=== PATIENT | female | born 1975 | race African-American/Black ===

== ENCOUNTER 2024-07-05 14:39 | Emergency (ER) | payer MEDICAID ==
[~2024-07-05] VITALS: Ht 172.7 cm; Wt 81.0 kg
[~2024-07-05 14:39] MED LIST: METFORMIN; PRENATAL
[2024-07-05 14:44] VITALS: O2SAT 98
[2024-07-05] MEDS ORDERED: SODIUM CHLORIDE 0.9% 1,000 ML IV ONE ×2 (15:00→15:15)
[2024-07-05 16:25] LABS: BASOPHILS % 0.9 % (0.0-2.0); EOSINOPHILS % 1.4 % (0.0-5.0); HEMATOCRIT. 38.9 % (36.0-48.0); HEMOGLOBIN. 12.8 g/dL (12.0-16.0); LYMPHOCYTES % 32.5 % (20.0-50.0); MEAN CORPUSCULAR HEMOGLOBIN 29.5 pg (28.0-32.0); MEAN CORPUSCULAR HGB CONC 32.8 g/dL (31.0-37.0); MEAN CORPUSCULAR VOLUME 89.7 fL (81.0-99.0); MEAN PLATELET VOLUME 10.2 fl (7.4-10.4); NEUTROPHILS % 58.2 % (40.0-76.0); PLATELET 176 x1000/uL (130-400); RED BLOOD CELL COUNT 4.34 mill/uL (4.2-5.4); RED CELL DISTRIBUTION WIDTH 13.7 % (11.6-14.6); WHITE BLOOD COUNT 4.8 x1000/uL (4.5-11.0)
[2024-07-05 16:31] LABS: CHLORIDE 101 mEq/L (98-107); POTASSIUM 3.2 mEq/L (3.5-5.1); SODIUM 135 mEq/L (136-145)
[2024-07-05 16:32] LABS: CALCIUM 9.2 mg/dL (8.7-10.4); CARBON DIOXIDE 26 mEq/L (21-32)
[2024-07-05 16:34] LABS: INR 0.9; PROTHROMBIN TIME 10.1 sec (9.6-11.0)
[2024-07-05 16:37] LABS: CREATININE 1.1 mg/dL (0.6-1.0); GLUCOSE 272 mg/dL (70-105); UREA NITROGEN BLOOD 14 mg/dL (9-23)
[2024-07-05 16:38] LABS: AMMONIA < 17 uMol/L (<32); ETHANOL BLOOD 11 mg/dL (<10)
[2024-07-05 16:39] LABS: ALANINE AMINOTRANSFERASE 7 IU/L (10-49); ALBUMIN 4.2 g/dL (3.2-4.8); ASPARTATE AMINOTRANSFERASE 15 IU/L (<34); BETA HYDROXYBUTYRATE 0.3 mMol/L (0.0-0.3); BILIRUBIN DIRECT 0.1 mg/dL (<=3.0); BILIRUBIN TOTAL 0.4 mg/dL (0.1-1.0)
[2024-07-05 16:42] LABS: TROPONIN I HIGH SENSITIVITY < 4 ng/L (3.0-34)
[2024-07-05 18:35] VITALS: BP 137/65; PULSE 92; RESP 18; TEMP 36.94740; O2SAT 98
== END 2024-07-05 18:38 | disposition home or self-care (01) ==
LOC: ER 14:44
DX: F10.129 Alcohol abuse with intoxication, unspecified (principal); E11.65 Type 2 diabetes mellitus with hyperglycemia; Y90.9 Presence of alcohol in blood, level not specified
CPT/HCPCS: 80076; 80048; 82010; 80320; 82140; 85025; 85610; 84484; 36415; 71045; 70450; 93005; 99285; J7030; G0480

== ENCOUNTER 2024-07-05 22:50 | Emergency (ER) | payer MEDICAID ==
[~2024-07-05] VITALS: Ht 170.2 cm; Wt 82.0 kg
[2024-07-05 23:03] VITALS: O2SAT 100
[2024-07-06 02:16] LABS: BASOPHILS % 1.1 % (0.0-2.0); EOSINOPHILS % 1.3 % (0.0-5.0); HEMATOCRIT. 42.4 % (36.0-48.0); HEMOGLOBIN. 13.5 g/dL (12.0-16.0); LYMPHOCYTES % 29.3 % (20.0-50.0); MEAN CORPUSCULAR HEMOGLOBIN 28.9 pg (28.0-32.0); MEAN CORPUSCULAR HGB CONC 31.8 g/dL (31.0-37.0); MEAN CORPUSCULAR VOLUME 90.9 fL (81.0-99.0); MEAN PLATELET VOLUME 10.2 fl (7.4-10.4); NEUTROPHILS % 59.3 % (40.0-76.0); PLATELET 187 x1000/uL (130-400); RED BLOOD CELL COUNT 4.66 mill/uL (4.2-5.4); RED CELL DISTRIBUTION WIDTH 14.2 % (11.6-14.6); WHITE BLOOD COUNT 5.1 x1000/uL (4.5-11.0)
[2024-07-06 02:20] LABS: CHLORIDE 103 mEq/L (98-107); POTASSIUM 3.7 mEq/L (3.5-5.1); SODIUM 138 mEq/L (136-145)
[2024-07-06 02:21] LABS: CALCIUM 9.3 mg/dL (8.7-10.4); CARBON DIOXIDE 26 mEq/L (21-32)
[2024-07-06 02:26] LABS: CREATININE 0.9 mg/dL (0.6-1.0); GLUCOSE 165 mg/dL (70-105); UREA NITROGEN BLOOD 12 mg/dL (9-23)
[2024-07-06 03:35] VITALS: BP 140/81; PULSE 75; RESP 20; TEMP 37.11408; O2SAT 100
== END 2024-07-06 03:46 | disposition home or self-care (01) ==
LOC: ER 22:50
DX: R55 Syncope and collapse (principal); E11.9 Type 2 diabetes mellitus without complications; I10 Essential (primary) hypertension
CPT/HCPCS: 36415; 80048; 82962; 85025; 99283